=== PATIENT | male | born 1995 | race Hispanic/Latino ===

== ENCOUNTER 2018-07-25 16:31 | Emergency (ER) | payer MEDICARE ==
[2018-07-25 17:19] LABS: RAPID GROUP A STREP NEGATIVE (NEGATIVE)
== END 2018-07-25 17:58 | disposition home or self-care (01) ==
LOC: EDH 16:31
DX: J06.9 Acute upper respiratory infection, unspecified (principal); F90.9 Attention-deficit hyperactivity disorder, unspecified type; F84.0 Autistic disorder; D69.41 Evans syndrome; E23.0 Hypopituitarism
CPT/HCPCS: 71045; 87804; 87880

== ENCOUNTER 2018-07-28 13:02 | Emergency (ER) | payer MEDICARE ==
[2018-07-28 14:31] LABS: RAPID GROUP A STREP NEGATIVE (NEGATIVE)
== END 2018-07-28 15:27 | disposition home or self-care (01) ==
LOC: EDH 13:02
DX: J20.9 Acute bronchitis, unspecified (principal); F90.9 Attention-deficit hyperactivity disorder, unspecified type; F84.0 Autistic disorder
CPT/HCPCS: 71046; 87804; 87880

== ENCOUNTER 2020-02-17 07:34 | Day surgery (SDC) | payer MEDICARE ==
[2020-02-17 08:10] LABS: BASOPHILS % (AUTO) 0.6 % (0.0-5.0); EOSINOPHILS % (AUTO) 4.7 % (0.0-8.0); HEMATOCRIT 46.6 % (42-54); LYMPHOCYTES % (AUTO) 26.8 % (21.0-51.0); MEAN CORPUSCULAR HEMOGLOBIN 29.3 pg (27.0-33.0); MEAN CORPUSCULAR HGB CONC 34.3 g/dL (32.0-36.0); MEAN CORPUSCULAR VOLUME 85.2 fL (79-99); MONOCYTES % (AUTO) 10.3 % (3.0-13.0); NEUTROPHILS % (AUTO) 57.2 % (40.0-77.0); PLATELET COUNT (AUTO) 201 K/uL (130-400); RED BLOOD CELL COUNT(AUTO) 5.47 MIL/uL (4.50-6.20); RED CELL DISTRIBUTION WIDTH 12.3 % (11.0-15.5); WHITE BLOOD COUNT (AUTO) 7.1 K/uL (4.8-10.8)
[2020-02-17] MEDS ORDERED: SODIUM CHLORIDE 0.9% 1000ML 1,000 ML IV ONE (08:37)
[2020-02-17 08:43] LABS: INR 0.94 (0.85-1.15); PARTIAL THROMBOPLASTIN TIME 27.9 SEC (26.3-35.5); PROTHROMBIN TIME 10.2 SEC (9.6-11.6)
[2020-02-17] MEDS ORDERED: ARIP15TA2 PO (08:56)
[2020-02-17] MEDS ORDERED: SERT50TA PO (08:56)
[2020-02-17] MEDS ORDERED: METH54TA PO (08:56)
[2020-02-17] MEDS ORDERED: CLON0.1T PO (08:56)
[2020-02-17] MEDS ORDERED: MIDAZOLAM HCL 1 MG/ML 2ML VIAL ONE (09:14)
[2020-02-17] MEDS ORDERED: FENTANYL CITRATE PF 50 MCG/1 ML 2ML VIAL ONE (09:14)
--- NOTE | 2020-02-17 10:30 | NUR ---
U/S GD LIVER BX PROCEDURE PERFORMED BY DR Adrianne ZEE. PUNCTURE SITE RUQ AND PATIENT TOLERATED PROCEDURE WELL. SPECIMEN X 3 COLLECTED AND SENT TO LAB. END OF PROCEDURE AT 1010. FLOSEAL INJECTED TO BIOPSY SITE BIOPSY NEEDLE REMOVED AND DRESSING APPLIED. NO BLEEDING NOTED. REPORT GIVEN TO Ludmila SINGER RN AND PATIENT TRANSPORTED TO DAY PATIENT VIA BED AT 1030. AAO X3 WITH NO C/O PAIN.
--- NOTE | 2020-02-17 10:45 | NUR ---
PT RETURNS FROM [facility] POST LIVER BIOPSY. OPSITE GAUZE DRESSING RUQ NEAR MIDLINE CLEAN DRY AND INTACT. VS STABLE. AWAKE AND ALERT. MOTHER AT BEDSIDE
[2020-02-17] MEDS ORDERED: SODIUM CHLORIDE 0.9% 10 ML VIAL IVP PRN (11:00)
[2020-02-17] MEDS ORDERED: ACETAMINOPHEN-CODEINE 300/30MG TAB PO SCH (11:15)
--- NOTE | 2020-02-17 12:11 | NUR ---
PT STABLE. NO BLEEDING TO PUNCTURE SITE RUQ. MAINTAINS BEDREST. VERBALIZES NO COMPLAINTS
--- NOTE | 2020-02-17 12:13 | NUR ---
PT ENDORSED TO KORIN TAVERA
== END 2020-02-17 13:27 | disposition home or self-care (01) ==
LOC: DAH 07:34 → EDSTATUS 08:00 → DAH 13:27
PROVIDERS: ATTEND Internal Medicine Gastroenterology
DX: K75.81 Nonalcoholic steatohepatitis (NASH) (principal); K74.00 Hepatic fibrosis, unspecified; K21.9 Gastro-esophageal reflux disease without esophagitis; F41.9 Anxiety disorder, unspecified; F31.9 Bipolar disorder, unspecified; Z88.8 Allergy status to other drugs, medicaments and biological substances; Z79.01 Long term (current) use of anticoagulants; Z79.899 Other long term (current) drug therapy
CPT/HCPCS: 36415; 47000; 76942; 85025; 85610; 85730; 88307; 88313; 88342; C2615; J2250; J3010; J7030; 99152; 99153

== ENCOUNTER 2020-02-25 14:34 | Emergency (ER) | payer MEDICARE ==
[~2020-02-25 14:34] MED LIST: ARIP15TA2 PO; CLON0.1T PO; METH54TA PO; SERT50TA PO
[2020-02-25] MEDS ORDERED: ONDANSETRON HCL 4 MG/2 ML VIAL ONE (14:58)
[2020-02-25] MEDS ORDERED: MORPHINE SULFATE 2 MG/ML 1ML SYG ONE (14:58)
[2020-02-25 15:03] LABS: BASOPHILS % (AUTO) 0.3 % (0.0-5.0); EOSINOPHILS % (AUTO) 5.9 % (0.0-8.0); HEMATOCRIT 44.3 % (42-54); LYMPHOCYTES % (AUTO) 15.9 % (21.0-51.0); MEAN CORPUSCULAR HEMOGLOBIN 29.3 pg (27.0-33.0); MEAN CORPUSCULAR HGB CONC 34.1 g/dL (32.0-36.0); MEAN CORPUSCULAR VOLUME 85.9 fL (79-99); MONOCYTES % (AUTO) 10.4 % (3.0-13.0); NEUTROPHILS % (AUTO) 67.2 % (40.0-77.0); PLATELET COUNT (AUTO) 199 K/uL (130-400); RED BLOOD CELL COUNT(AUTO) 5.16 MIL/uL (4.50-6.20); RED CELL DISTRIBUTION WIDTH 12.2 % (11.0-15.5); WHITE BLOOD COUNT (AUTO) 11.5 K/uL (4.8-10.8)
[2020-02-25] MEDS ORDERED: IOHEXOL-350 75 ML VIAL IV ONE (15:12)
[2020-02-25 15:14] LABS: CREATININE 1.5 mg/dL (0.5-1.5); POTASSIUM 4.1 mmol/L (3.5-5.1)
[2020-02-25 15:27] LABS: ALBUMIN 3.7 g/dL (3.5-5.0); BILIRUBIN,DIRECT 0.1 mg/dL (0.0-0.3); BILIRUBIN,TOTAL 0.7 mg/dL (0.2-1.0); TOTAL PROTEIN, SERUM 7.8 g/dL (6.0-8.3)
[2020-02-25] MEDS ORDERED: CEPHALEXIN 500 MG CAPSULE ONE (16:35)
== END 2020-02-25 16:58 | disposition home or self-care (01) ==
LOC: EDH 14:34
DX: L03.311 Cellulitis of abdominal wall (principal); R94.5 Abnormal results of liver function studies; F90.9 Attention-deficit hyperactivity disorder, unspecified type; F84.0 Autistic disorder; Z48.89 Encounter for other specified surgical aftercare
CPT/HCPCS: 36415; 74177; 80053; 80076; 82150; 82550; 83605; 83690; 85025; 96374; 96375; 99285; J2405; Q9967

== ENCOUNTER 2020-03-04 00:23 | Emergency (ER) | payer MEDICARE ==
[2020-03-04] MEDS ORDERED: TETRACAINE HCL 0.5% 4 ML OPHTH SOLN ONE (00:36)
[2020-03-04] MEDS ORDERED: LIDOCAINE HCL-MPF 1% 2ML VIAL ONE (00:44)
[2020-03-04] MEDS ORDERED: CEFTRIAXONE SODIUM 1 GM ONE (00:45)
[2020-03-04] MEDS ORDERED: KETOROLAC TROMETHAMINE 30MG/ML ONE (01:13)
== END 2020-03-04 01:39 | disposition home or self-care (01) ==
LOC: EDH 00:23
DX: H66.004 Acute suppurative otitis media without spontaneous rupture of ear drum, recurrent, right ear (principal); H60.551 Acute reactive otitis externa, right ear; F90.9 Attention-deficit hyperactivity disorder, unspecified type
CPT/HCPCS: 96372 ×2; 99284; J0696; J1885; J3490

== ENCOUNTER → 2020-10-13 | Outpatient (CLI) | payer MEDICARE ==
[~2020-10-13] MED LIST changes: +IOHEXOL 350 MG/ML 100ML INFUS..BTL IV ONE
== END | disposition home or self-care (01) ==
LOC: RAH 09:12
PROVIDERS: ATTEND Internal Medicine Gastroenterology
DX: R91.1 Solitary pulmonary nodule (principal); K76.0 Fatty (change of) liver, not elsewhere classified
CPT/HCPCS: 74170; Q9967